=== PATIENT | male | born 1930 | race Caucasian/White ===

== ENCOUNTER → 2017-06-08 | Outpatient (CLI) | payer MEDICARE, BC ==
[~2017-06-08] MED LIST: 24 HOUR ALLER15.8 ML; ALTACE PO; ASPIRIN PO; ATIVAN PO; AZELASTINE137 MCG/0.; BYSTOLIC5 MG PO; CELEBREX PO; CRESTOR10 MG PO; FLOMAX0.4 M1 PO; FLOMAX0.4 MG PO; GUANFACINE PO; LANOXIN PO; MONTELUKAST SOD10 MG PO; NASONEX17 GM; NEURONTIN PO; NEURONTIN100 MG PO; NORVASC PO; PREVACID PO; PROSCAR5 MG PO; REMERON PO
--- NOTE | ~2017-06-08 | EKG ---
PATIENT: UZMA KING UNIT #: [id number] Ventricular Rate: 82 BPM Atrial Rate: 82 BPM P-R Interval: 202 ms QRS Duration: 102 ms Q-T Interval: 386 ms QTC Calculation(Bezet): 450 ms P Glover: 82 degrees Calculated R Glover: -10 degrees Calculated T Glover: 13 degrees Diagnosis Line: Normal sinus rhythm Diagnosis Line: Normal ECG Diagnosis Line: When compared with ECG of 23-JUN-2016 08:38, Diagnosis Line: IL interval has decreased Diagnosis Line: QT has lengthened Diagnosis Line: Confirmed by DANI MELENDEZ MD ([id number]) on Diagnosis Line: 06/10/2017 7:27:25 AM INTERPRETING MD: NORA LONDON
--- NOTE | ~2017-06-08 | CR63 ---
[facility] A Service of [facility] RADIOLOGY TEXT RESULTS PATIENT: UZMA KING LOCATION: [facility] : [birth year] UNIT #: [id number] AGE: [address]: Tim Lyn MD SEX: M ORDER DR: [id number] [facility] [address] [place], [place] [address] [id number] O MR#: [id number] Acc #: [id number] NAME: UZMA KING : 1930 SEX: M STUDY DATE/TIME: 06/08/2017 9:17 UNIT: [facility] ROOM: STUDY DESCRIPTION: CR Chest 2 View Attending Physician: Tim Lyn M.D. Referring Physician: Tim Lyn M.D. Ordering Physician: Tim Lyn M.D. Primary Care Physician: Jameson Johnson M.D. MEDICAL IMAGING REPORT This report is preliminary unless electronic signature is present EXAM Chest 2 views dated 06/08/2017. COMPARISON Chest 2 views dated 06/23/2016. HISTORY Preop evaluation chest 4 left knee surgery. FINDINGS 2 views of the chest were obtained. The lateral view is limited in evaluation. There is mild right pleural effusion, new when compared to the prior study from last year. There is probably some associated mild atelectasis/infiltrate. No pneumothorax or obvious lung mass. Postoperative changes are noted in the right shoulder with chronic bony changes. Heart is of normal size. Dictated by... Val Riley M.D. THIS IS AN ELECTRONICALLY VERIFIED REPORT Val Riley M.D. at 06/11/2017 7:45 PM CPR/pcl TD: 06/08/2017 16:04 JOB #: [id number] MEDICAL IMAGING REPORT Page 1 of 1 COPY
--- NOTE | ~2017-06-08 | CO ---
Unit #: [id number] #: [id number] Patient: UZMA KING [id number] [facility]. [place], [place] [address] [id number] O MR#: [id number] NAME: UZMA KING ROOM: Age: 86 Sex: M Admission Date: 06/08/2017 : 1930 Attending Physician: Tim Lyn M.D. Primary Care Physician: Jameson Johnson M.D. Consultation Date: 06/08/2017 CONSULTATION REPORT REASON FOR CONSULTATION Preprocedure medical evaluation prior to left total knee arthroplasty scheduled by Dr. Lyn for 06/20/2017. HISTORY OF PRESENT ILLNESS The patient is an 86-year-old male, who presents to preprocedural screening for the reason as indicated above. The patient underwent right total knee arthroplasty here at [facility] in 11/2016 and tolerated the procedure well. He complains of mild increased upper respiratory congestion and mild sore throat at the time of the interview today. Other than left knee discomfort, he has no complaints. Since the time of his last preoperative medical evaluation, he has not had any upper chest, upper back, arm, neck, jaw, pain or pressure. Denies lightheadedness, dizziness, presyncope, or syncope. He states he intermittently has palpitations that he was evaluated by a cpc prior to his last procedure. He denies lightheadedness or dizziness. No presyncope or syncope with palpitations. Denies fever or chills. He was evaluated and provided preop pulmonary clearance prior to his previous elective total knee arthroplasty. He is compliant with CPAP. He denies having myocardial infarction, congestive heart failure, stroke, TIA, CVA, diabetes, or kidney disease since his last medical evaluation. He has been evaluated by Dr. Lyn and scheduled for the above-referenced procedure. PAST MEDICAL HISTORY 1. Osteoarthritis. 2. Coronary artery disease with history of myocardial infarction. 3. History of arrhythmia, cleared by Dr. Busch prior to elective total joint replacement in 11/2016. 4. Obstructive sleep apnea compliant with CPAP, status post pulmonary clearance prior to elective total knee arthroplasty in 11/2016. 5. Hypertension. 6. BPH. 7. History of GERD. 8. History of spasmodic colon. 9. Hyperlipidemia. 10. History of neuropathy. 11. Restless legs syndrome. PAST SURGICAL HISTORY 1. Left inguinal hernia repair. 2. Tonsillectomy. 3. Right rotator cuff repair. 4. Bilateral cataract extraction. Unit #: [id number] #: [id number] Patient: UZMA KING 5. Sinus surgery. 6. Colonoscopy. 7. Right knee arthroscopy and right total knee arthroplasty in 11/2016. Please note, the patient denies personal and family history of complications to anesthesia. ALLERGIES Denies latex allergy. Denies medication allergies. CURRENT MEDICATIONS Aspirin 81 mg p.o. daily, Remeron 30 mg p.o. at bedtime, Proscar 5 mg p.o. at noon, 24 Hour Allergy Relief 2 sprays nasally daily in each nostril for allergies, montelukast sodium 10 mg p.o. daily. Bystolic one tab p.o. daily, I will need to clarify home dose. Flomax 1 cap p.o. at bedtime, need to clarify home dose. Crestor 10 mg p.o. daily. SOCIAL HISTORY Denies tobacco use, EtOH use, or illicit drug use. The patient is a resident at [facility]. FAMILY HISTORY Hypertension, lung cancer, and coronary artery disease. REVIEW OF SYSTEMS The patient complains of mild sore throat, mild gland tenderness and upper respiratory congestion and mild nonproductive cough, left knee pain. Denies fever or chills. A 10-point review of systems is conducted and otherwise negative except as indicated under history of present illness above. PHYSICAL EXAMINATION GENERAL: An 86-year-old male, awake, alert, in no acute distress. Seated in wheelchair, accompanied by his daughter. VITAL SIGNS: Temperature 97, heart rate 80, respiratory rate 20, blood pressure 123/72, oxygen saturation 97% on room air. HEENT: Atraumatic and normocephalic. Sclerae anicteric. No discharge from eyes, ears, or nares. LYMPH: No preauricular, postauricular. Mild bilateral tonsillar adenopathy and tenderness. Mild anterior cervical tenderness or adenopathy. No posterior adenopathy or tenderness. ENDOCRINE: No thyromegaly, thyroid nodules, or tenderness. RESPIRATORY: Clear to auscultation in all vigil bilaterally without wheezes, rhonchi, or rales. CARDIOVASCULAR: S1, S2. Regular rate and rhythm without murmur or rub. No carotid bruits. GI: Bowel sounds are positive x4, soft, nontender, nondistended. EXTREMITIES: No edema, cyanosis, or clubbing. MUSCULOSKELETAL: Hand grasps, strong and equal bilaterally. Strength 5/5 in lower extremities bilaterally to flexion and extension. NEUROLOGIC: Alert, speech clear, cranial nerves II through XII are grossly intact. Follows directions for examination. DIAGNOSTIC STUDIES LABORATORY RESULTS: WBC 14.4, hemoglobin 11.7, hematocrit 36.1, platelet count 411,000. Urinalysis; leukocyte esterase trace, nitrite negative, protein 2+, glucose negative, ketone negative, U-hyal 5 to 10. Urine culture and sensitivity not indicated at this time. PT 11.7, INR 1.1. Unit #: [id number] #: [id number] Patient: UZMA KING Sodium 133, potassium 4.0, chloride 102, CO2 of 24, glucose 177, BUN 28, creatinine 0.9, calcium 9.1, AST 22, ALT 23, alkaline phos 49, bilirubin total 0.4, total protein 7.7, albumin 3.2. Blood type A positive, antibody screen negative. MRSA nasal swab report pending at this time. IMAGING STUDIES: Two-view chest x-ray report pending at this time. CARDIOVASCULAR STUDIES: A 12-lead EKG; normal sinus rhythm, normal ECG. Confirmed report pending at this time. IMPRESSION The patient is an 86-year-old male, who presents to preprocedural screening for. 1. Preoperative medical evaluation prior to left total knee arthroplasty. The patient's Walls revised cardiac risk index is equal to 0.4 to 1.0%. This represents the patient's perioperative risk of fatal or nonfatal myocardial infarction, cardiopulmonary arrest, arrhythmia and/or pulmonary edema. This has been discussed in detail with the patient and he wishes to proceed with surgery as scheduled at this time. Again, the patient was evaluated by Dr. Busch and provided with preoperative cardiac clearance in 06/2016. The patient is asymptomatic today. 2. Coronary artery disease, history of myocardial infarction with history of arrhythmia. Please refer to #[address] the patient on social worker masters postoperatively on the orthopedic unit. We will consult Dr. Busch postoperatively if indicated. 3. Obstructive sleep apnea, compliant with CPAP. The patient has been advised to bring his CPAP to the hospital for use postoperatively when asleep. He will be placed on NUVIA protocol. He was given pulmonary clearance in 04/2017. 4. Hypertension blood pressure is stable. We will monitor adjust medications accordingly. 5. Benign prostatic hyperplasia. We will monitor for postoperative urinary retention. Continue Flomax postoperatively. 6. History of gastroesophageal reflux disease. 7. History of spasmodic colon. 8. Hyperlipidemia. 9. History of neuropathy. 10. History of anemia. 11. Possible early viral upper respiratory infection. The patient and his daughter, both have been advised if symptoms worsen he is to contact his primary care physician for further evaluation and management of his condition prior to surgery and they have verbalized understanding this information. 12. Hyperglycemia, it is unclear whether this is related to food intake. We will add hemoglobin A1c off blood in lab today to follow trend. The patient's hemoglobin A1c on file in [facility] in 10/2009 was 5.6. Thank you for allowing us to participate in the care of this patient. We will gladly follow him for postop medical management pending order of Dr. Lyn. Dictated by... Derick HawkPBrandyRBrandyN. for Ana Adams M.D. MARIIA/ofelia TD: 06/09/2017 03:03 Unit #: [id number] #: [id number] Patient: UZMA KING JOB #: [id number] CONSULTATION REPORT Page 1 of 1 X Viviana Wiggins APRN X CONSULTATION REPORT
[2017-06-08 08:26] LABS: HEMATOCRIT 36.1 % (38.0-50.0); HEMOGLOBIN 11.7 gm/dL (13.0-16.0); MEAN CORPUSCULAR HEMOGLOBIN 29.6 PG (28-34); MEAN CORPUSCULAR HGB CONC 32.5 g/dL (30-36); RED BLOOD COUNT 3.97 X10e (3.90-5.60); RED CELL DISTRIBUTION WIDTH 16.5 % (11.0-15.5); WHITE BLOOD COUNT 14.4 X10e3 (4.0-10.5)
[2017-06-08 08:27] LABS: URINE APPEARANCE CLEAR; URINE BILIRUBIN NEG (NEG); URINE BLOOD NEG (NEG); URINE COLOR YELLOW; URINE GLUCOSE NEG (NEG); URINE KETONE NEG (NEG); URINE LEUKOCYTE ESTERASE TRACE (NEG); URINE NITRATE NEG (NEG); URINE PROTEIN 2+ (NEG); URINE SPECIFIC GRAVITY 1.029 (1.003-1.035)
[2017-06-08 08:30] LABS: URBCS1 AUWI 0-2 /[HPF] (0-2); URINE BACTERIA AUWI NEG (NEGATIVE); URINE SQUAMOUS EPITHELIAL CELL OCC /[HPF]
[2017-06-08 08:34] LABS: CULTURE INDICATED? NO; URINE SOURCE CLEAN CATCH
[2017-06-08 08:43] LABS: INR 1.1; PROTHROMBIN TIME (PATIENT) 11.7 SECONDS (10.0-11.7)
[2017-06-08 08:52] LABS: ALBUMIN SERUM 3.2 g/dL (3.5-5.0); BILIRUBIN,TOTAL 0.4 mg/dL (0.2-2.0); BUN/CREATININE RATIO 31.11; CALCIUM SERUM 9.1 mg/dL (8.4-10.2); CREATININE SERUM 0.9 mg/dL (0.6-1.4); PROTEIN TOTAL SERUM 7.7 g/dL (6.0-8.3)
== END | disposition home or self-care (01) ==
LOC: CAMB 07:46
PROVIDERS: Orthopaedic Surgery
DX: Z01.818 Encounter for other preprocedural examination (principal); M17.12 Unilateral primary osteoarthritis, left knee
CPT/HCPCS: 36415; 71020; 80053; 81003; 83036; 85027; 85610; 86850; 86900; 86901; 87070; 93005

== ENCOUNTER 2017-06-20 08:06 | Inpatient (IN) | payer MEDICARE, BC ==
[~2017-06-20] VITALS: Ht 171.4 cm; Wt 76.8 kg
--- NOTE | ~2017-06-20 | DS ---
Unit #: [id number] #: [id number] Patient: UZMA KING [id number] [address] [id number] MR#: [id number] NAME: UZMA KING ROOM: 452 Age: 86 Sex: M Admission Date: 06/20/2017 : 1930 Discharge Date: 06/21/2017 Attending Physician: Tim Lyn M.D. Primary Care Physician: Jameson Johnson M.D. DISCHARGE SUMMARY ADMITTING DIAGNOSIS Left knee osteoarthritis. DISCHARGE DIAGNOSIS Left knee osteoarthritis. HOSPITAL COURSE On 06/20/2017, Mr. King underwent a left total knee arthroplasty. He tolerated the procedure well. He was transported to the fourth floor where he underwent physical therapy, medical management and anticoagulation therapy. Doing well and is ready to be discharged. DISPOSITION Stable. DISCHARGE Discharge to [facility]. MEDICATIONS ON DISCHARGE Routine home meds in addition to Coumadin 7.5 mg p.o. daily and [place]on[place] 10/325. FOLLOWUP AND INSTRUCTIONS Mr. King is going to be discharged to [facility]. The patient is on Coumadin for DVT prophylaxis. A PT/INR is to be drawn every Tuesday and in addition to tomorrow, 06/21/2017. Physical therapy is to be done for active range of motion, strengthening and progressive ambulation. Patient will be on a walker for four weeks and a cane for an additional two weeks. Followup appointment with Dr. Lyn is in six weeks. Please call our office for that appointment date and time. Dictated by... Niya SantizoABrandyCBrandy for Tim Lyn M.D. ÁNGELA/lamonte TD: 06/21/2017 10:46 JOB #: [id number] Unit #: [id number] #: [id number] Patient: UZMA KING DISCHARGE SUMMARY Page 1 of 1 X Yissel Wilson DISCHARGE SUMMARY
--- NOTE | ~2017-06-20 | OR ---
Unit #: [id number] #: [id number] Patient: UZMA KING [id number] [place], [place] [address] [id number] I MR#: [id number] NAME: UZMA KING ROOM: 452 Date of Procedure: 06/20/2017 Admission Date: 06/20/2017 Surgeon: Tim Lyn M.D. : 1930 Attending Physician: Tmi Lyn M.D. Primary Care Physician: Jameson Johnson M.D. OPERATIVE REPORT PREOPERATIVE DIAGNOSIS Primary localized osteoarthritis of left knee. POSTOPERATIVE DIAGNOSIS Primary localized osteoarthritis of left knee. PROCEDURE PERFORMED Left total knee. ASSISTANTS Steve and Tanmay. ANESTHESIA Adductor canal block plus general. ESTIMATED BLOOD LOSS 100 mL. INDICATIONS FOR PROCEDURE This is an 86-year-old gentleman with severe pain in his left knee. The pain limits his walking and standing. It has been getting progressively worse. He has tried injections and anti-inflammatories with no relief of his discomfort. DESCRIPTION OF PROCEDURE He was brought to the holding room and given 1 g of Kefzol. This will be continued postop, but discontinued within 23 hours of start time of surgery. He was then given an adductor canal block and brought to the operating room and given a general anesthetic. Tourniquet was positioned along the left leg and left leg was prepped and draped in a sterile fashion. Tourniquet was inflated to 250. A straight anterior skin incision was made. The subcutaneous dissected away and a medial arthrotomy performed. Patella was slid to the side. Osteophytes removed from the femur. The intramedullary guide was used and a 6-degree valgus cut was made on the distal femur. The femur was sized and found to be a size 5. The anterior-posterior cutting block was applied. Rotation was checked in the knee. Anterior and posterior cuts were made. Proximal tibial cut was made using a 0-degree cutting block. It was sized at a 4 and the meniscal fragments were debrided and posterior condylar osteophytes were removed. We then injected the posterior capsule and the periosteum with ropivacaine mixture. Trial femur was applied. The drill holes were made for lugs on the femoral component. Trial tibia was Unit #: [id number] #: [id number] Patient: UZMA KING applied with an 8 insert. The knee came to full extension and good stability in extension and flexion. Rotation of the tibia was marked and the external alignment guide showed appropriate alignment of the limb. Patella was grasped with 2 towel clips, measured a 26 mm thick, cut smooth at 14, and a 41 patella was the appropriate size. The 3 drill holes were made. Trial patella applied and it tracked properly. We then removed all the trials, used the drill and punch for the tibial tray. The knee was irrigated and dried while the cement was mixed and then all 3 components were cemented simultaneously. Once again, it was a size 5 femur cruciate retaining, 41 patella, and a size 4 all-poly 8 mm thick tibia from the [employer] P[employer] Sigma knee system. The knee was held in extension. The rest of the ropivacaine mixture was injected. After the cement was hardened, the knee was irrigated with Betadine and then bacitracin. Tourniquet released. Hemostasis obtained and the wound was closed using 0 Ethibond in the arthrotomy, 0 and 2-0 Vicryl in the subcutaneous, and the skin was closed with Prineo Dermabond material. Optimization Analyst, Yissel Wilson, was present throughout the entire case. Dictated by... Jhoan Greene/ofelia TD: 06/20/2017 23:26 JOB #: [id number] OPERATIVE REPORT Page 1 of 1 X Tim Lyn MD PROCEDURE OPERATIVE NOTE
[2017-06-21 03:36] LABS: HEMATOCRIT 30.3 % (38.0-50.0)
[2017-06-21 04:09] LABS: CALCIUM SERUM 8.6 mg/dL (8.4-10.2); GLOM FILT RATE Estimated 66.9 mL/min (>60); MAGNESIUM 2.3 mg/dL (1.6-3.0); POTASSIUM 4.7 mmol/L (3.5-5.1)
== END 2017-06-21 15:40 | DRG 470 ==
LOC: CSUR 08:06 → CPACUOF 09:30 → CSUR 10:00 → CPACUOF 10:00 → C4B 18:35
PROVIDERS: Nurse Practitioner; Orthopaedic Surgery
PROC: 0SRD0J9 Replacement of Left Knee Joint with Synthetic Substitute, Cemented, Open Approach (ICD-10-PCS; principal; 2017-06-20 10:00)
DX: M17.12 Unilateral primary osteoarthritis, left knee (principal); E11.9 Type 2 diabetes mellitus without complications; E87.1 Hypo-osmolality and hyponatremia; D62 Acute posthemorrhagic anemia; K21.9 Gastro-esophageal reflux disease without esophagitis; G25.81 Restless legs syndrome; N40.0 Benign prostatic hyperplasia without lower urinary tract symptoms; I10 Essential (primary) hypertension; E78.5 Hyperlipidemia, unspecified
CPT/HCPCS: 80048; 82947; 83735; 84295; 85014; 85018; 85610; 94010; 94760; 97110; 97116; 97162; 97530; C1776; G8978-GP; G8979-GP; G8980-GP; J0131; J0171; J0360; J0690; J0735; J1100; J1650; J1815; J1885; J2405; J2795; J3010